=== PATIENT | female | born 1955 | race Caucasian/White ===

== ENCOUNTER → 2018-11-03 | Outpatient (CLI) | payer BC ==
[2016-05-10 14:04] VITALS: BMI 33.7
[~2018-11-03] MED LIST: ALB18R INH; ALBU1.257 IH; AMOX-559 PO; AZIT-17 PO; BETH25TA29 PO; CHOL200018 PO; CHOL500045 PO; FLUT1DIS27 IH; IPRA3AMP10 IH; LEVO50TA80 PO; MUPI22OI28; Miscellaneous Information PO; OMEP-218 PO; PRE1 PO; PRED-1 PO; PRED20TA6 PO; SENN-90 PO; TAMS0.4C70 PO; VALA100059 PO
--- NOTE | 2018-11-03 09:42 | RADIOLOGY IMAGING REPORT ---
FACILITY: [facility] PATIENT NAME: Marichuy Martínez : 1955 MR: [id number] V: [id number] EXAM DATE: ORDERING PHYSICIAN: RICH DILLON TECHNOLOGIST: Location: [facility] Patient: Marichuy Martínez : 1955 Visit/Account:[id number] Date of Sevice: 11/03/2018 CHEST PA LAT COMPARISONS: 2 view chest dated December 15, 2015 ADDITIONAL PERTINENT HISTORY: None. FINDINGS: Cardiomediastinal silhouette: Negative. Pulmonary vasculature: Negative. Lung downey: Minimal background interstitial scarring in both lung bases. Otherwise negative Pleural spaces: Negative. Osseous structures: Mild spondylitic change involving the thoracic spine. Surrounding soft tissues: Negative. IMPRESSION: No evidence of acute cardiopulmonary disease. Report Dictated By: Francisco Latham MD at 11/03/2018 9:36 AM Report E-Signed By: Francisco Latham MD at 11/03/2018 9:37 AM WSN:[id number]
== END ==
LOC: LAB 08:44
PROVIDERS: ATTEND Internal Medicine
DX: J45.21 Mild intermittent asthma with (acute) exacerbation (principal)
CPT/HCPCS: 71046